=== PATIENT | male | born 1980 | race Caucasian/White ===

== ENCOUNTER 2021-10-08 20:37 | Emergency (ER) | payer OTHER ==
[~2021-10-08] VITALS: Ht 170.2 cm; Wt 122.5 kg
[~2021-10-08 20:37] MED LIST: ACET500ER PO; IBUP400 PO; LISHYD2025 PO; PANT20 PO; RANI150 PO
== END 2021-10-08 22:47 | disposition home or self-care (01) ==
LOC: ER 20:37
DX: S60.512A Abrasion of left hand, initial encounter (principal); W25.XXXA Contact with sharp glass, initial encounter; Y92.59 Other trade areas as the place of occurrence of the external cause; Y99.0 Civilian activity done for income or pay; Z79.899 Other long term (current) drug therapy
CPT/HCPCS: 73120; 99282-25

== ENCOUNTER 2022-07-25 12:52 | Day surgery (SDC) | payer OTHER ==
[~2022-07-25] VITALS: Ht 170.2 cm; Wt 120.6 kg
[~2022-07-25 12:52] MED LIST changes: +AMLO5 PO; +HYDCHL25 PO; +LISI20 PO; +METF500 PO; +Percocet 5-3251 EACH PO
--- NOTE | 2022-07-25 18:32 | NUR ---
Patient up to Ambulate independently. Gait steady. Discharge instructions reviewed with patient. Patient verbalizes understanding. Copy given to patient to take home. Patient States Post-Procedure ride home has been arranged. Discharged via wheelchair to private car for ride home.
== END 2022-07-25 22:39 | disposition home or self-care (01) ==
LOC: ORSCMMR 12:52 → ORD 14:10 → ORSCMMR 22:39
PROVIDERS: Podiatrist Foot & Ankle Surgery
PROC: 0LMN0ZZ Reattachment of Right Lower Leg Tendon, Open Approach (ICD-10-PCS; principal; 2022-07-25 14:10)
PROC: 0J8Q0ZZ Division of Right Foot Subcutaneous Tissue and Fascia, Open Approach (ICD-10-PCS; principal; 2022-07-25 14:10)
PROC: 0YBN0ZZ Excision of Left Foot, Open Approach (ICD-10-PCS; principal; 2022-07-25 14:10)
DX: M76.61 Achilles tendinitis, right leg (principal); M72.2 Plantar fascial fibromatosis; S92.001A Unspecified fracture of right calcaneus, initial encounter for closed fracture; M79.671 Pain in right foot; I10 Essential (primary) hypertension; G47.33 Obstructive sleep apnea (adult) (pediatric); E66.01 Morbid (severe) obesity due to excess calories; Z68.41 Body mass index [BMI] 40.0-44.9, adult; Z79.899 Other long term (current) drug therapy; Z79.84 Long term (current) use of oral hypoglycemic drugs
CPT/HCPCS: A9270; C1713; J0330; J0690; J1100; J1885; J2001; J2250; J2405; J2704; J2795; J3010; J7120

== ENCOUNTER 2025-02-04 08:08 | Day surgery (SDC) | payer OTHER ==
[~2025-02-04] VITALS: Ht 170.2 cm; Wt 119.5 kg
[2025-02-04] MEDS ORDERED: Tranexamic Acid 100 ML IV ONE (08:14)
[2025-02-04] MEDS ORDERED: CeFAZolin Sodium 2,000 MG VIAL ONE (08:30)
--- NOTE | 2025-02-04 08:36 | NUR ---
02/04/25 0836 Marilee Hutson PT DENIES HISTORY OF MRSA, CHART NOTES POSITIVE HISTORY OF MRSA. UPON LOOKING AT PREVIOUS DOCUMENTATION PATIENT HAD MRSA IN BACK ABCESS IN 201. PT STATES HE DOES NOT REMEMBER HAVING A BACK ABCESS.
[2025-02-04] MEDS ORDERED: PIOG30 PO (08:45)
[2025-02-04] MEDS ORDERED: Midazolam HCl 1MG / ML 2ML Vial ONE (08:59)
[2025-02-04] MEDS ORDERED: FentaNYL Citrate 50 MCG/ML 2 ML Injection ONE ×2 (08:59→11:25)
[2025-02-04] MEDS ORDERED: Dexamethasone Sod Phos 10 MG/ML 1ML VIAL ONE (09:00)
[2025-02-04] MEDS ORDERED: Bupivacaine HCl 0.25% 30 ML Injection ONE (09:00)
[2025-02-04] MEDS ORDERED: Rocuronium Bromide 10 MG/ML 5ML Injection IV ONE (09:00)
--- NOTE | 2025-02-04 10:01 | NUR ---
02/04/25 Kaitlyn1 Brenden Hallman 1MG OF EPI ADDED TO EACH OF THE FIRST THREE BAGS OF LR USED FOR JOINT IRRIGATION.
[2025-02-04] MEDS ORDERED: ePHEDrine Sulfate 50 MG/ML 1ML Injection ONE (10:07)
[2025-02-04] MEDS ORDERED: Ondansetron HCl 2 MG / ML 2ML Vial ONE (10:47)
[2025-02-04] MEDS ORDERED: Sugammadex Sodium 200 MG/2ML SDV (100 MG/ML) ONE (10:47)
--- NOTE | 2025-02-04 11:21 | NUR ---
02/04/25 1121 SOCORRO GODOY REPORT GIVEN TO LUCY SMITH. PT TRANSFER TO SDU. PT SLEEPINGINTERMITTENTELTY IN PACU. OPA REMOVED. PT REMAINED ON 8L VIA NONREBREATHER 02. DENIES PAIN/NAUSEA. DRESSING C/D/I
[2025-02-04 11:39] VITALS: BP 125/81
== END 2025-02-04 12:39 | disposition home or self-care (01) ==
LOC: ORSCSDS 08:08
PROVIDERS: Orthopaedic Surgery Sports Medicine
PROC: 0LM14ZZ Reattachment of Right Shoulder Tendon, Percutaneous Endoscopic Approach (ICD-10-PCS; principal; 2025-02-04 09:45)
PROC: 0RNJ4ZZ Release Right Shoulder Joint, Percutaneous Endoscopic Approach (ICD-10-PCS; principal; 2025-02-04 09:45)
DX: M75.101 Unspecified rotator cuff tear or rupture of right shoulder, not specified as traumatic (principal); I10 Essential (primary) hypertension; G47.33 Obstructive sleep apnea (adult) (pediatric); K21.9 Gastro-esophageal reflux disease without esophagitis; E11.9 Type 2 diabetes mellitus without complications; E66.01 Morbid (severe) obesity due to excess calories; Z68.41 Body mass index [BMI] 40.0-44.9, adult; Z79.84 Long term (current) use of oral hypoglycemic drugs; Z79.899 Other long term (current) drug therapy
CPT/HCPCS: 82947; A9270; C1713; J0166; J0690; J1100; J2250; J2405; J2704; J3010; J7120